=== PATIENT | female | born 1980 | race Caucasian/White ===

== ENCOUNTER 2020-02-04 13:20 | Outpatient (CLI) | payer BC, OTHER ==
--- NOTE | 2020-02-13 13:28 | Mammography Report ---
BILATERAL DIGITAL SCREENING MAMMOGRAM 3D/2D: 02/04/2020 CLINICAL: Routine screening. Baseline exam. No prior exams were available for comparison. The tissue of both breasts is heterogeneously dense. T his may lower the sensitivity of mammography. There is a possible 2.5 cm mass in the right breast at 4 o'clock middle depth. There also is a 1 cm focal asymmetry in the right breast at 12 o'clock middle depth. There is a possible 3 cm mass in the left breast at 1 o'clock posterior depth. No other significant masses or calcifications are seen in either breast. IMPRESSION: INCOMPLETE: NEEDS ADDITIONAL IMAGING EVALUATION The possible 2.5 cm mass in the right breast at 4 o'clock middle depth resembles a cyst and is indete rminate. Additional views with possible ultrasound are recommended. The 1 cm focal asymmetry in the right breast at 12 o'clock middle depth is indeterminate. Additional views with possible ultrasound are recommended. The possible 3 cm mass in the left breast at 1 o'clock posterior depth resembles a cyst and is indete rminate. Additional views with possible ultrasound are recommended. This exam was interpreted at Station ID: [id number]. NOTE: For mammograms, a report in lay terms will be sent to the patient. Approximately 15% of breast malignancies will not be visualized mammographically. In the management of a palpable breast mass, a negative mammogram must not discourage biopsy of a clinically suspicious lesion. Electronically Signed By: Zander [email or web address]/paola:02/04/2020 14:19:15 ACR BI-RADS Category 0: Incomplete 3340F PARENCHYMAL PATTERN: (D) - The breast(s) demonstrate(s) heterogeneously dense fibroglandular laurie marshall. BI-RADS CATEGORY: (0) - 0 Mammo and [place] [id number] Immediate follow-up LATERALITY: (B)
== END 2020-02-04 13:21 | disposition home or self-care (01) ==
LOC: DI 13:20
PROVIDERS: ATTEND Obstetrics & Gynecology
DX: Z12.31 Encounter for screening mammogram for malignant neoplasm of breast (principal); R92.8 Other abnormal and inconclusive findings on diagnostic imaging of breast
CPT/HCPCS: 77063; 77067

== ENCOUNTER 2021-01-17 12:19 | Outpatient (CLI) | payer OTHER ==
--- NOTE | 2021-01-18 08:03 | Ultrasound Report ---
LIMITED ULTRASOUND OF LEFT BREAST AND AXILLA: 01/17/2021 CLINICAL: Patient returns for a 12 month follow up of the left breast. Comparison is made to exams dated: 01/17/2021 mammogram - [facility], 03/05/2020 ma mmogram - [facility], and 02/04/2020 mammogram - [facility]. Color flow and real-time ultrasound of the left breast 1-2 o'clock, and axilla regions were performe d. Song scale images of the real-time examination were reviewed. There is a 1.6 cm x 1.6 cm x 1.3 cm oval mass with a circumscribed margin in the left breast at 1 o'c lock posterior depth 8 cm from the nipple. This oval mass is hypoechoic with posterior acoustic enha ncement. This abnormality is not significantly changed and correlates with mammography findings. No significant abnormalities were seen sonographically in the left axilla. IMPRESSION: PROBABLY BENIGN The 1.6 cm x 1.6 cm x 1.3 cm oval mass in the left breast most likely is a fibroadenoma and is probab ly benign. A follow-up mammogram and an ultrasound in 12 months is recommended. This exam was interpreted at Station ID: [id number]. Electronically Signed By: Zander [email or web address]/paola:01/17/2021 15:42:42 Ultrasound BI-RADS: 3 Probably benign BI-RADS CATEGORY: (3) - 3 Mammo and [place] [id number] 12 month follow-up LATERALITY: (B)
--- NOTE | 2021-01-18 08:03 | Ultrasound Report ---
LIMITED ULTRASOUND OF RIGHT BREAST AND AXILLA: 01/17/2021 CLINICAL: Patient returns for a 12 month follow up of the right breast. Comparison is made to exams dated: 01/17/2021 mammogram - [facility], 03/05/2020 ma mmogram - [facility], and 02/04/2020 mammogram - [facility]. Color flow and real-time ultrasound of the right breast 3-4 o'clock, 6 o'clock, 11-12 o'clock, retroa reolar, and axilla regions were performed. Song scale images of the real-time examination were revie wed. There is a 2.1 cm x 1.6 cm x 0.7 cm oval mass with a circumscribed margin in the right breast at 3 o' clock middle depth 7 cm from the nipple. This oval mass is hypoechoic. This abnormality is not sign ificantly changed. There also is a 0.7 cm x 0.9 cm x 0.5 cm oval mass with a circumscribed margin in the right breast at 4 o'clock in the retroareolar region. This oval mass is hypoechoic. This abnormality is not signif icantly changed. Additionally, there is a 1 cm x 0.9 cm x 0.4 cm oval mass with a circumscribed margin in the right br east at 9 o'clock middle depth 7 cm from the nipple. This oval mass is hypoechoic. This abnormality is not significantly changed. In addition, there is a 0.7 cm x 0.8 cm x 0.3 cm oval mass in the right breast at 11 o'clock posterio r depth. This oval mass is hypoechoic. This abnormality is not significantly changed. No significant abnormalities were seen sonographically in the right axilla. IMPRESSION: PROBABLY BENIGN The 2.1 cm x 1.6 cm x 0.7 cm oval mass in the right breast at 3 o'clock middle depth most likely is a fibroadenoma and is probably benign. The 0.7 cm x 0.9 cm x 0.5 cm oval mass in the right breast at 4 o'clock in the retroareolar region mo st likely is a fibroadenoma and is probably benign. The 1 cm x 0.9 cm x 0.4 cm oval mass in the right breast at 9 o'clock middle depth resembles a fibroa denoma and is probably benign. The 0.7 cm x 0.8 cm x 0.3 cm oval mass in the right breast at 11 o'clock posterior depth resembles a fibroadenoma and is probably benign. A follow-up mammogram and an ultrasound in 12 months is recommended. This exam was interpreted at Station ID: [id number]. Electronically Signed By: Zander [email or web address]/paola:01/17/2021 15:46:24 Ultrasound BI-RADS: 3 Probably benign BI-RADS CATEGORY: (3) - 3 Mammo and [place] [id number] 12 month follow-up LATERALITY: (B)
--- NOTE | 2021-01-18 08:03 | Mammography Report ---
BILATERAL DIGITAL DIAGNOSTIC MAMMOGRAM 3D/2D: 01/17/2021 CLINICAL: Short term follow up for bilateral breasts. Routine screening. Comparison is made to exams dated: 03/05/2020 mammogram - [facility] and 02/04/2020 m ammogram - [facility]. The tissue of both breasts is heterogeneously dense. This m ay lower the sensitivity of mammography. There is a 2.5 cm oval mass with a circumscribed margin in the right breast at 3 o'clock middle depth . This is not significantly changed. There also is a 1 cm oval mass with an obscured margin in the right breast at 12 o'clock middle depth . This is not significantly changed. Additionally, there is a 9 mm oval mass with an obscured and circumscribed margin in the right breast at 4 o'clock in the retroareolar region. This is not significantly changed. In addition, there is a 1 cm oval mass with an obscured and circumscribed margin in the right breast at 9 o'clock anterior depth. This is not significantly changed. There is a 3 cm oval mass with an obscured margin in the left breast at 1 o'clock posterior depth. T his is not significantly changed. No other significant masses or calcifications are seen in either breast. IMPRESSION: INCOMPLETE: NEEDS ADDITIONAL IMAGING EVALUATION The 2.5 cm oval mass in the right breast at 3 o'clock middle depth is indeterminate. An ultrasound i s recommended. The 1 cm oval mass in the right breast at 12 o'clock middle depth is indeterminate. An ultrasound is recommended. The 9 mm oval mass in the right breast at 4 o'clock in the retroareolar region is indeterminate. An ultrasound is recommended. The 1 cm oval mass in the right breast at 9 o'clock anterior depth is indeterminate. An ultrasound i s recommended. The 3 cm oval mass in the left breast at 1 o'clock posterior depth is indeterminate. An ultrasound i s recommended. This exam was interpreted at Station ID: [id number]. NOTE: For mammograms, a report in lay terms will be sent to the patient. Approximately 15% of breast malignancies will not be visualized mammographically. In the management of a palpable breast mass, a negative mammogram must not discourage biopsy of a clinically suspicious lesion. Electronically Signed By: Zander jeter/paola:01/17/2021 15:40:34 ACR BI-RADS Category 0: Incomplete 3340F PARENCHYMAL PATTERN: (D) - The breast(s) demonstrate(s) heterogeneously dense fibroglandular parenchy ma. BI-RADS CATEGORY: (0) - 0 Ultrasound [id number] Immediate follow-up LATERALITY: (B)
== END 2021-01-17 12:20 | disposition home or self-care (01) ==
LOC: DI 12:19
PROVIDERS: ATTEND Surgery
DX: N63.21 Unspecified lump in the left breast, upper outer quadrant (principal); N63.12 Unspecified lump in the right breast, upper inner quadrant; N63.14 Unspecified lump in the right breast, lower inner quadrant; N63.11 Unspecified lump in the right breast, upper outer quadrant